=== PATIENT | female | born 1975 | race American Indian/Alaskan Native ===

== ENCOUNTER 2016-07-29 15:17 | Emergency (ER) | payer MEDICAID, OTHER ==
[2016-07-29 15:32] VITALS: RESP 18
--- NOTE | 2016-07-29 16:49 | C.PDOC ---
History Of Present Illness 40 y/o female pmhx polycystic ovarian disease, morbid obesity, uterine fibroids presents to the ED with complains of pain and swelling to breasts and chest for the past 2 months. Pt states her breasts usually feel heavier with menses and resolve, pt didn't 2 months ago. Pt also reports pain and swelling to upper chest, left shoulder and arm with occasional lower extremity swelling mainly left medial thigh and ankles. Also notes occasional left low pelvic pain. Pain is 6/10, increases on palpation and movement. Pt denies fever, chills, headache , nausea, vomiting, chest pain, SOB, or any other complaints. Pt reports taking natural supplements of iron, beef broth, fish oil. She also notes feeling increased swelling after taking lymph detoxifier 2 months ago. Pt has not followed up with PMD. Time Seen by Provider: 07/29/16 15:42 Chief Complaint (Nursing): Breast Problem History Per: Patient History/Exam Limitations: no limitations Onset/Duration Of Symptoms: Days Current Symptoms Are (Timing): Still Present Severity: Moderate Recent travel outside of the [place]: No Past Medical History Reviewed: Historical Data, Nursing Documentation, Vital Signs Vital Signs: Last Vital Signs Temp Pulse 83 07/29/16 15:30 Resp 18 07/29/16 15:30 BP 125/77 07/29/16 15:30 Pulse Ox 99 07/29/16 16:53 Family History: States: Unknown Family Hx - Social History Hx Tobacco Use: No Hx Alcohol Use: No Hx Substance Use: No - Immunization History Hx Tetanus Toxoid Vaccination: No Hx Influenza Vaccination: No Hx Pneumococcal Vaccination: No Review Of Systems Except As Marked, All Systems Reviewed And Found Negative. Constitutional: Negative for: Fever, Chills Cardiovascular: Negative for: Chest Pain Respiratory: Negative for: Shortness of Breath Gastrointestinal: Negative for: Nausea, Vomiting, Diarrhea Genitourinary: Positive for: Pelvic Pain Musculoskeletal: Positive for: Other (pain and swelling to breasts, upper chest , left shoulder and arm; swelling to lower extremities mainly thigh and ankles) Neurological: Negative for: Headache Physical Exam - Physical Exam Appears: Non-toxic, No Acute Distress, Other (obese) Skin: Warm, Dry, No Rash Head: Atraumatic, Normacephalic Neck: Normal ROM, Supple Lymphatic: No Adenopathy Chest: Tenderness (upper chest and bilateral breast tenderness), Other (skin normal, no pitting or lesions) Cardiovascular: Rhythm Regular, No Murmur Respiratory: Normal Breath Sounds, No Rales, No Rhonchi, No Wheezing Gastrointestinal/Abdominal: Soft, Tenderness (mild lower pelvic), No Guarding, No Rebound Extremity: Normal ROM, No Tenderness, No Pedal Edema Extremity: Bilateral: Atraumatic Neurological/Psych: Oriented x3, Normal Speech, Normal Motor, Normal Sensation ED Course And Treatment - Laboratory Results Result Diagrams: 07/29/16 16:45 07/29/16 16:45 O2 Sat by Pulse Oximetry: 99 (on room air) Pulse Ox Interpretation: Normal Medical Decision Making Medical Decision Making: Plan: labs, EKG, UA Disposition Counseled Patient/Family Regarding: Studies Performed, Need For Followup - Disposition Referrals: [facility] [Outside] Disposition: HOME/ ROUTINE Disposition Time: 17:35 Condition: GUARDED Additional Instructions: Please follow up with your doctor or our clinic. - Clinical Impression Clinical Impression: Breast pain - Scribe Statement The provider has reviewed the documentation as recorded by the Yvette Barrera Provider Attestation: All medical record entries made by the Yvette were at my direction and personally dictated by me. I have reviewed the chart and agree that the record accurately reflects my personal performance of the history, physical exam, medical decision making, and the department course for this patient. I have also personally directed, reviewed, and agree with the discharge instructions and disposition.
[2016-07-29 16:57] LABS: BASO # 0.1 K/uL (0.0-0.2); BASO % 0.9 % (0.0-2.0); EOS # 0.1 K/uL (0.0-0.7); EOS % 1.7 % (0.0-4.0); HEMATOCRIT 36.9 % (34.0-47.0); LYMPH # 2.3 K/uL (1.0-4.3); LYMPH % 40.2 % (20.0-40.0); MEAN CELL VOLUME 94.9 fL (81.0-99.0); MEAN CORPUSCULAR HEMOGLOBIN 30.5 pg (27.0-31.0); MEAN CORPUSCULAR HGB CONC 32.2 g/dL (33.0-37.0); MEAN PLATELET VOLUME 9.2 fL (7.2-11.7); MONO # 0.4 K/uL (0.0-0.8); MONO % 7.6 % (0.0-10.0); NRBC % 0.1 % (0.0-2.0); WHITE BLOOD COUNT 5.8 K/uL (4.8-10.8)
[2016-07-29 17:02] LABS: URINE BACTERIA RARE (<OCC); URINE BILIRUBIN NEGATIVE (NEGATIVE); URINE BLOOD NEGATIVE (NEGATIVE); URINE COLOR Straw (YELLOW); URINE GLUCOSE (UA) NORMAL (Normal); URINE KETONE NEGATIVE (NEGATIVE); URINE LEUKOCYTE ESTERASE NEG Leu/uL (Negative); URINE PROTEIN NEGATIVE (NEGATIVE); URINE UROBILINOGEN NORMAL mg/dL (0.2-1.0); WBC URINE < 1 /hpf (0-5)
[2016-07-29 17:17] LABS: CHLORIDE 101 mmol/L (98-107); SODIUM 139 mmol/L (132-148)
[2016-07-29 17:18] LABS: POTASSIUM 4.5 mmol/L (3.6-5.2)
[2016-07-29 17:20] LABS: ALB/GLOB RATIO 1.4 (1.0-2.1); ALKALINE PHOSPHATASE 57 U/L (38-126); AST/SGOT 29 U/L (14-36); BILIRUBIN,TOTAL 0.5 mg/dL (0.2-1.3); BLOOD UREA NITROGEN 12 mg/dL (7-17); CALCIUM 9.2 mg/dl (8.6-10.4); CARBON DIOXIDE 27 mmol/L (22-30); GFR AFRICAN-AMERICAN > 60; GLUCOSE,RANDOM 92 mg/dL (65-105); TOTAL PROTEIN 7.9 g/dL (6.3-8.3)
[2016-07-29 17:21] LABS: ALT/SGPT 35 U/L (9-52)
[2016-07-29 17:46] VITALS: BP 108/73; PULSE 68; O2SAT 97
--- NOTE | 2016-08-02 12:28 | CARD ---
APPROVED REPORT EKG Measurement Heart [id number] <Conclusion> Normal sinus rhythm Cannot rule out Anterior infarct, age undetermined Abnormal ECG
== END 2016-07-29 17:53 | disposition home or self-care (01) ==
LOC: C.ER 15:17
DX: N64.4 Mastodynia (principal)

== ENCOUNTER 2018-03-27 20:11 | Emergency (ER) | payer OTHER ==
[2018-03-27 20:11] VITALS: BMI 72.3
[2018-03-27 20:23] VITALS: RESP 20; O2SAT 100
[2018-03-27] MEDS ORDERED: Sodium Chloride 0.9% 1,000 ML IV ONE (21:27)
--- NOTE | 2018-03-27 21:27 | C.PDOC ---
History Of Present Illness 42 year old female presents to the ED c/o nausea, vomit, diarrhea, and decreased PO. Patient reports she bought an old hamburger on Tuesday and ate it on Tuesday. Patient denies fever, chills, dysuria, hematuria, back pain, rash. Time Seen by Provider: 03/27/18 21:27 Chief Complaint (Nursing): Abdominal Pain History Per: Patient History/Exam Limitations: no limitations Onset/Duration Of Symptoms: Days Current Symptoms Are (Timing): Still Present Context: Food Location Of Pain/Discomfort: Diffuse Quality Of Discomfort: "Pain" Associated Symptoms: Nausea, Vomiting, Diarrhea, Loss Of Appetite. denies: Constipation, Urinary Symptoms Exacerbating Factors: Food Recent travel outside of the [place]: No Additional History Per: Patient Abnormal Vaginal Bleeding: No Past Medical History Reviewed: Historical Data, Nursing Documentation, Vital Signs Vital Signs: Last Vital Signs Temp 97.9 F 03/27/18 20:17 Pulse 75 03/27/18 20:17 Resp 20 03/27/18 20:17 BP 105/72 03/27/18 20:17 Pulse Ox 100 03/27/18 20:17 - Medical History PMH: No Chronic Diseases Surgical History: No Surg Hx Family History: States: Unknown Family Hx - Social History Hx Tobacco Use: No Hx Alcohol Use: No Hx Substance Use: No - Immunization History Hx Tetanus Toxoid Vaccination: No Hx Influenza Vaccination: No Hx Pneumococcal Vaccination: No Review Of Systems Constitutional: Negative for: Fever, Chills Cardiovascular: Negative for: Chest Pain, Palpitations Respiratory: Negative for: Cough, Shortness of Breath Gastrointestinal: Positive for: Nausea, Vomiting, Abdominal Pain, Diarrhea Genitourinary: Negative for: Dysuria, Hematuria Skin: Negative for: Rash Neurological: Negative for: Weakness, Numbness Physical Exam - Physical Exam Appears: Non-toxic, No Acute Distress Skin: Warm, Dry Head: Normacephalic Eye(s): bilateral: Normal Inspection Oral Mucosa: Moist Neck: Supple Chest: Symmetrical Cardiovascular: Rhythm Regular Respiratory: No Rales, No Rhonchi, No Wheezing Gastrointestinal/Abdominal: Soft, No Tenderness, No Guarding, No Rebound, Other (morbidly obese) Extremity: Bilateral: Atraumatic, Normal Color And Temperature, Normal ROM Neurological/Psych: Oriented x3, Normal Speech, Normal Cognition Gait: Steady ED Course And Treatment - Laboratory Results Result Diagrams: 12/03/18 21:30 03/27/18 21:30 O2 Sat by Pulse Oximetry: 100 (On RA) Pulse Ox Interpretation: Normal Progress Note: Plan: - Labs. - UA. - Pepcid 20 mg IVP. - IV fluids. - Zofran 4 mg IVP Reevaluation Time: 23:12 Reassessment Condition: Improved Disposition Counseled Patient/Family Regarding: Studies Performed, Diagnosis, Need For Followup, Rx Given - Disposition Referrals: [facility] [Outside] Disposition: HOME/ ROUTINE Disposition Time: 21:27 Condition: FAIR Additional Instructions: Please return if symptoms recur Prescriptions: Ondansetron ODT [Zofran ODT] 1 odt PO BID PRN #6 odt PRN Reason: Nausea/Vomiting Instructions: Food Poisoning (DC) Forms: [employer] ([place]) - Clinical Impression Clinical Impression: Food poisoning - Scribe Statement The provider has reviewed the documentation as recorded by the Scribe Prabhakar Sharma All medical record entries made by the Scribe were at my direction and personally dictated by me. I have reviewed the chart and agree that the record accurately reflects my personal performance of the history, physical exam, medical decision making, and the department course for this patient. I have also personally directed, reviewed, and agree with the discharge instructions and disposition.
[2018-03-27 21:34] LABS: BASO % 0.5 % (0.0-2.0); EOS # 0.1 K/uL (0.0-0.7); EOS % 0.7 % (0.0-4.0); HEMOGLOBIN 11.8 g/dL (11.0-16.0); LYMPH % 22.7 % (20.0-40.0); MEAN CORPUSCULAR HEMOGLOBIN 30.2 pg (27.0-31.0); MEAN CORPUSCULAR HGB CONC 32.4 g/dL (33.0-37.0); MEAN PLATELET VOLUME 8.8 fL (7.2-11.7); MONO # 0.6 K/uL (0.0-0.8); MONO % 6.8 % (0.0-10.0); NEUT # 6.1 K/uL (1.8-7.0); NEUT % 69.3 % (50.0-75.0); RBC 3.9 Mil/uL (3.80-5.20); RED CELL DISTRIBUTION WIDTH 14.1 % (11.5-14.5)
[2018-03-27] MEDS ORDERED: Sodium Chloride 0.9% 1,000 ML ONE (21:34)
[2018-03-27 21:49] LABS: WHITE BLOOD COUNT 8.8 K/uL (4.8-10.8)
[2018-03-27 21:56] LABS: ALB/GLOB RATIO 1.2 (1.0-2.1); ALBUMIN 4.5 g/dL (3.5-5.0); ALT/SGPT 35 U/L (9-52); AST/SGOT 37 U/L (14-36); BLOOD UREA NITROGEN 9 mg/dL (7-17); CALCIUM 9.4 mg/dl (8.6-10.4); GFR NON-AFRICAN AMERICAN > 60; LIPASE 125 U/L (23-300)
[2018-03-27 22:24] LABS: SQUAMOUS EPITHIAL 3 /hpf (0-5); URINE BACTERIA RARE (<OCC); URINE BILIRUBIN NEGATIVE (NEGATIVE); URINE BLOOD NEGATIVE (NEGATIVE); URINE CLARITY Clear (Clear); URINE COLOR Yellow (YELLOW); URINE GLUCOSE (UA) NORMAL (Normal); URINE LEUKOCYTE ESTERASE NEG Leu/uL (Negative); URINE PROTEIN NEGATIVE (NEGATIVE); URINE UROBILINOGEN NORMAL mg/dL (0.2-1.0)
[2018-03-27 22:25] LABS: HCG,QUALITATIVE URINE NEGATIVE (NEGATIVE)
[2018-03-27 23:35] VITALS: BP 124/78; PULSE 67; TEMP 98.3
== END 2018-03-27 23:42 | disposition home or self-care (01) ==
LOC: C.ER 20:11
DX: T62.91XA Toxic effect of unspecified noxious substance eaten as food, accidental (unintentional), initial encounter (principal)
CPT/HCPCS: 80053; 81001; 83690; 84703; 85025; 96361; 96374; 96375; 99284; J2405; J7030